=== PATIENT | male | born 1995 | race Two or more races ===

== ENCOUNTER 2018-12-20 18:23 | Emergency (ER) | payer SELFPAY ==
[~2018-12-20] VITALS: Ht 180.3 cm; Wt 95.3 kg
[2018-12-20] MEDS ORDERED: TETANUS-DIPTH-ACEL PERTUSSIS 0.5ML SYRG IM ONE (21:00)
[2018-12-20] MEDS ORDERED: LIDOCAINE 1% HCL (LOCAL ANESTH.) INJ 20ML MDV IJ ONE (21:00)
[2018-12-20] MEDS ORDERED: BACITRACIN TOP OINT 1 UD PKG TOP ONE (21:45)
[2018-12-20 22:00] VITALS: BP 133/86
== END 2018-12-20 21:27 | disposition home or self-care (01) ==
LOC: ER 18:30
DX: S61.314A Laceration without foreign body of right ring finger with damage to nail, initial encounter (principal); W22.8XXA Striking against or struck by other objects, initial encounter; Y93.89 Activity, other specified; Y99.8 Other external cause status; Y92.89 Other specified places as the place of occurrence of the external cause
CPT/HCPCS: 11730; 12001; 73130; 90471; 90715; 99283; J2001